=== PATIENT | female | born 1995 | race Caucasian/White ===

== ENCOUNTER 2017-01-23 19:41 | Emergency (ER) | payer BC ==
[2017-01-23 19:46] VITALS: RESP 16; TEMP 98.2
[2017-01-23 20:00] LABS: COLOR YELLOW; LEUKOCYTE ESTERASE,URINE NEGATIVE (NEGATIVE); NITRITE,URINE NEGATIVE (NEGATIVE); PH,URINE 6.5 (5.0-7.5)
[2017-01-23 20:17] LABS: % IMMATURE GRANULYOCYTES 0.1 % (0.0-1.1); ABSOLUTE IMMATURE GRANULOCYTES 0.01 10^3/uL (0.00-0.10); ADD DIFF? NO; ADD MORPH? NO; ADD SCAN? NO; ATYPICAL LYMPHOCYTE FLAG 0 (0-99); FRAGMENT RBC FLAG 0 (0-99); HEMATOCRIT 40.4 % (38.0-47.0); HEMOGLOBIN 13.4 g/dL (12.6-16.3); LEFT SHIFT FLG 0 (0-99); LIPEMIA HEMOLYSIS FLAG 80 (0-99); MEAN CELL HEMOGLOBIN 28.9 pg (27.9-34.1); MEAN CELL HEMOGLOBIN CONCENTR. 33.2 g/dL (32.4-36.7); MEAN CELL VOLUME 87.3 fL (81.5-99.8); MEAN PLATELET VOLUME 10.2 fL (8.7-11.7); PLATELET CLUMPS FLAG 20 (0-99); PLATELET COUNT 326 10^3/uL (150-400); RED BLOOD CELL COUNT 4.63 10^6/uL (4.18-5.33); RED CELL DISTRIBUTION WIDTH 12.4 % (11.5-15.2)
[2017-01-23 20:31] LABS: ALANINE AMINOTRANSFERASE 24 IU/L (9-52); ALBUMIN 4.4 g/dL (3.5-5.0); ALKALINE PHOSPHATASE 63 IU/L (38-126); ANION GAP 15 mEq/L (8-16); ASPARTATE AMINOTRANSFERASE 19 IU/L (14-46); BILIRUBIN,TOTAL 0.7 mg/dL (0.1-1.4); BILIRUBIN-CONJUGATED 0.1 mg/dL (0.0-0.5); BILIRUBIN-UNCONJUGATED 0.6 mg/dL (0.0-1.1); CALCIUM 9.9 mg/dL (8.5-10.4); CARBON DIOXIDE 24 mEq/l (22-31); CHLORIDE 102 mEq/L (97-110); CREATININE 0.7 mg/dL (0.6-1.0); GLOMERULAR FILTRATION RATE > 60; GLUCOSE 88 mg/dL (70-100); POTASSIUM 3.9 mEq/L (3.5-5.2); SODIUM 141 mEq/L (134-144); TOTAL PROTEIN 7.1 g/dL (6.3-8.2)
[2017-01-23] MEDS ORDERED: KETOROLAC 30 MG/1 ML SDV IVP ONE (20:52)
[2017-01-23 22:05] VITALS: BP 121/71; PULSE 77; O2SAT 98
--- NOTE | 2017-01-23 22:08 | EDPHY ---
HPI/HX/ROS/PE/MDM Narrative: CHIEF COMPLAINT:Abdominal/flank pain HPI: The patient is a 21-year-old female with no significant past medical history. She complains of right-sided abdominal and flank pain that began last night. She denies fever or dysuria. Pain is dull and worse with walking and driving. No vomiting or diarrhea. LMP was 2 weeks ago and was normal. No trauma. REVIEW OF SYSTEMS: Aside from elements discussed in the HPI, a comprehensive 10-point review of systems was reviewed and is negative. PMH: No history of abdominal surgery. SOCIAL HISTORY:Works at [employer]. Denies alcohol or drug abuse. PHYSICAL EXAM: General:Patient is alert, in no acute distress. ENT:Eyes are normal to inspection. ENT inspection normal. Neck: Normal inspection. Full range of motion. Respiratory:No respiratory distress. Breath sounds normal bilaterally. Cardiovascular: Regular rate and rhythm. Strong peripheral pulses. Normal cap refill. Abdomen: Mild tenderness to palpation is present in the RUQ. There are no peritoneal signs. There are normal bowel sounds. Back: Normal to inspection. No tenderness to palpation. No CVA tenderness. Skin: Normal color. No rash. Warm and dry. Extremities: Normal appearance. Full range of motion. Neuro: Oriented x3. Normal motor function. Normal sensory function. ED Course: This patient presents with RUQ pain (contrary to triage note which lists RLQ as site of pain) without other significant symptoms. UA is negative for signs of UTI or kidney stone. WBC is not elevated. LFTs and lipase are normal. US pending. MDM: This is a young healthy female with right-sided abdominal pain. We performed an extensive workup including blood work, UA, and US of [facility], all of which are negative. There is no evidence for appendicitis, ovarian torsion, , cholecystitis or cholelithiasis, kidney stone or UTI. On re-evaluation at [id number], patient states she feels much better and would like to go home. We discussed option of CTAP, but patient does not want to pursue this tonight - she agrees to return to the ED tomorrow if pain recurs. She understands that the etiology of her pain is unknown at this time. - Data Points Imaging Results: Imaging Impressions Abdomen Ultrasound 01/23/17 20:13 Impression: Normal study. Results discussed with Dr. Ledbetter at 22:40 PM Abdomen Ultrasound 01/23/17 20:14 Impression: Normal appendix. Results called to Dr. Henriquez in at 10:42 PM. Imaging: Discussed imaging studies w/ call or contact centre manager Radiologist, I viewed and interpreted images myself Laboratory Results: Laboratory Results 01/23/17 20:00 01/23/17 20:00 01/23/17 01/23/17 01/23/17 20:00 20:00 20:00 WBC 8.18 10^3/uL 10^3/uL (3.80-9.50) RBC 4.63 10^6/uL 10^6/uL (4.18-5.33) Hgb 13.4 g/dL g/dL (12.6-16.3) Hct 40.4 % % (38.0-47.0) MCV 87.3 fL fL (81.5-99.8) MCH 28.9 pg pg (27.9-34.1) MCHC 33.2 g/dL g/dL (32.4-36.7) RDW 12.4 % % (11.5-15.2) Plt Count 326 10^3/uL 10^3/uL (150-400) MPV 10.2 fL fL (8.7-11.7) Neut % (Auto) 61.3 % % (39.3-74.2) Lymph % (Auto) 30.6 % % (15.0-45.0) Mathews % (Auto) 5.9 % % (4.5-13.0) Eos % (Auto) 1.6 % % (0.6-7.6) Baso % (Auto) 0.5 % % (0.3-1.7) Nucleat RBC Rel Count 0.0 % % (0.0-0.2) Absolute Neuts (auto) 5.02 10^3/uL 10^3/uL (1.70-6.50) Absolute Lymphs (auto) 2.50 10^3/uL 10^3/uL (1.00-3.00) Absolute Monos (auto) 0.48 10^3/uL 10^3/uL (0.30-0.80) Absolute Eos (auto) 0.13 10^3/uL 10^3/uL (0.03-0.40) Absolute Basos (auto) 0.04 10^3/uL 10^3/uL (0.02-0.10) Absolute Nucleated RBC 0.00 10^3/uL 10^3/uL (0-0.01) Immature Gran % 0.1 % % (0.0-1.1) Immature Gran # 0.01 10^3/uL 10^3/uL (0.00-0.10) Sodium 141 mEq/L mEq/L (134-144) Potassium 3.9 mEq/L mEq/L (3.5-5.2) Chloride 102 mEq/L mEq/L (97-110) Carbon Dioxide 24 mEq/l mEq/l (22-31) Anion Gap 15 mEq/L mEq/L (8-16) BUN 16 mg/dL mg/dL (7-23) Creatinine 0.7 mg/dL mg/dL (0.6-1.0) Estimated GFR > 60 Glucose 88 mg/dL mg/dL (70-100) Calcium 9.9 mg/dL mg/dL (8.5-10.4) Total Bilirubin 0.7 mg/dL mg/dL (0.1-1.4) Conjugated Bilirubin 0.1 mg/dL mg/dL (0.0-0.5) Unconjugated Bilirubin 0.6 mg/dL mg/dL (0.0-1.1) AST 19 IU/L IU/L (14-46) ALT 24 IU/L IU/L (9-52) Alkaline Phosphatase 63 IU/L IU/L (38-126) Total Protein 7.1 g/dL g/dL (6.3-8.2) Albumin 4.4 g/dL g/dL (3.5-5.0) Lipase 74 IU/L IU/L (23-300) Beta HCG, Qual NEGATIVE Urine Color Urine Appearance Urine pH Ur Specific [place] Urine Protein Urine Ketones Urine Blood Urine Nitrate Urine Bilirubin Urine Urobilinogen Ur Leukocyte Esterase Urine RBC Urine WBC Ur Epithelial Cells Ur Renal Epithelial Cell Urine Crystals Ammonium Urate Crystals Calcium Carbonate Cryst Calcium Phosphate Cryst Calcium Oxalate Crystal Leucine Crystals Cystine Crystals Uric Acid Crystals Triple Phos Crystals Sodium Urate Crystals Sulfonamide Crystals Cholesterol Crystals Tyrosine Crystals Bilirubin Crystals Amorphous Sediment Urine Bacteria Epithelial Casts Fatty Casts Hyaline Casts Granular Casts Waxy Casts Broad Casts RBC Casts WBC Casts Urine Mucus Urine Trichomonas Urine Yeast Urine Sperm Ur Oval Fat Bodies Ur Free Fat Droplets Ur Unidentified Matter Urine Glucose Urine Comment 01/23/17 19:50 WBC RBC Hgb Hct MCV MCH MCHC RDW Plt Count MPV Neut % (Auto) Lymph % (Auto) Mathews % (Auto) Eos % (Auto) Baso % (Auto) Nucleat RBC Rel Count Absolute Neuts (auto) Absolute Lymphs (auto) Absolute Monos (auto) Absolute Eos (auto) Absolute Basos (auto) Absolute Nucleated RBC Immature Gran % Immature Gran # Sodium Potassium Chloride Carbon Dioxide Anion Gap BUN Creatinine Estimated GFR Glucose Calcium Total Bilirubin Conjugated Bilirubin Unconjugated Bilirubin AST ALT Alkaline Phosphatase Total Protein Albumin Lipase Beta HCG, Qual Urine Color YELLOW Urine Appearance CLEAR Urine pH 6.5 (5.0-7.5) Ur Specific [place] 1.010 (1.002-1.030) Urine Protein NEGATIVE (NEGATIVE) Urine Ketones NEGATIVE (NEGATIVE) Urine Blood NEGATIVE (NEGATIVE) Urine Nitrate NEGATIVE (NEGATIVE) Urine Bilirubin NEGATIVE (NEGATIVE) Urine Urobilinogen 0.2 EU EU (0.2-1.0) Ur Leukocyte Esterase NEGATIVE (NEGATIVE) Urine RBC Cancelled Urine WBC Cancelled Ur Epithelial Cells Cancelled Ur Renal Epithelial Cell Cancelled Urine Crystals Cancelled Ammonium Urate Crystals Cancelled Calcium Carbonate Cryst Cancelled Calcium Phosphate Cryst Cancelled Calcium Oxalate Crystal Cancelled Leucine Crystals Cancelled Cystine Crystals Cancelled Uric Acid Crystals Cancelled Triple Phos Crystals Cancelled Sodium Urate Crystals Cancelled Sulfonamide Crystals Cancelled Cholesterol Crystals Cancelled Tyrosine Crystals Cancelled Bilirubin Crystals Cancelled Amorphous Sediment Cancelled Urine Bacteria Cancelled Epithelial Casts Cancelled Fatty Casts Cancelled Hyaline Casts Cancelled Granular Casts Cancelled Waxy Casts Cancelled Broad Casts Cancelled RBC Casts Cancelled WBC Casts Cancelled Urine Mucus Cancelled Urine Trichomonas Cancelled Urine Yeast Cancelled Urine Sperm Cancelled Ur Oval Fat Bodies Cancelled Ur Free Fat Droplets Cancelled Ur Unidentified Matter Cancelled Urine Glucose NEGATIVE (NEGATIVE) Urine Comment Cancelled Medications Given: Discontinued Medications Ketorolac Tromethamine (Toradol) 30 mg IVP EDNOW ONE Stop: 01/23/17 20:53 Last Admin: 01/23/17 20:54 Dose: 30 mg General Time Seen by Provider: 01/23/17 19:46 Initial Vital Signs: Initial Vital Signs Temperature (C) 36.8 C 01/23/17 19:43 Heart Rate 72 01/23/17 19:43 Respiratory Rate 16 01/23/17 19:43 Blood Pressure 114/71 01/23/17 19:43 O2 Sat (%) 99 01/23/17 19:43 O2 Delivery Mode Room Air Allergies/Adverse Reactions: Sulfa (Sulfonamide Antibiotics) Allergy (Intermediate, Verified 01/23/17 19:46) Pt reports Rash as child Home Medications: Medication Instructions Recorded MIRENA 01/23/17 Departure - Departure Disposition: Home, Routine, Self-Care Clinical Impression: Abdominal pain Condition: Good Instructions: Acute Abdominal Pain (ED) Additional Instructions: Follow-up with your primary doctor within 72 hours. Return to the Emergency Department for worsening pain, fever, severe vomiting, change in character or severity of pain or other worsening of condition. If pain persists, return to the ED in 12 hours for re-evaluation. Referrals: Amelia Thrasher MD [Primary Care Provider] - As per Instructions
== END 2017-01-23 23:05 | disposition home or self-care (01) ==
LOC: CED 19:41
DX: R10.11 Right upper quadrant pain (principal)
CPT/HCPCS: 76705-PO; 80048-PO; 80076-PO; 81003-PO; 83690-PO; 84703-PO; 85025-PO; 96374; J1885